=== PATIENT | female | born 1940 | race African-American/Black ===

== ENCOUNTER 2016-02-17 19:54 | Emergency (ER) | payer OTHER, BC ==
[~2016-02-17] VITALS: Ht 149.9 cm; Wt 47.6 kg
--- NOTE | ~2016-02-17 | EKG ---
[address] [address] ELECTROCARDIOGRAM REPORT Name: ALEN MADISON Room #: DEP [facility]#: [id number] Admission: 02/17/16 Attend Phys: Discharge: 02/17/16 Date of : 38 Report #: [id number] THIS REPORT FOR: //name// 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
[~2016-02-17 19:54] MED LIST: ADVAIR HFA 1112 UNIT INH; ASPIR 8181 MG PO; ASPIRIN EC81 M1 PO; COMBIVENT RESPIM4 GM INH; FLONASE 0.05%50 MCG NASAL; LISINOPRIL5 MG PO; LOPRESSOR100 M1 PO; LOPRESSOR50 PO; NEPHROCAPS SOFT1 CAP PO; NEURONTIN 300300 M1 PO; NITROGLYCERIN0.4 MG SUBLING; PAXIL10 MG PO; PEPCID20 MG PO; PREDNISONE 10 M10 MG PO; PROAIR HFA8.5 GM INH; TRIAMCINOLONE A80 G2; [UNRECOGNIZED DRUG - OTHER]
[2016-02-17 20:46] LABS: HEMOGLOBIN 12.1 gm/dL (12.0-15.0); RDW 18.2 % (10.5-14.5)
[2016-02-17 20:47] LABS: HEMATOCRIT 37.3 % (37.0-47.0); MCH 28.6 pg (26.0-34.0); MCHC 32.4 % (28.0-37.0); MCV 88.5 fL (80.0-100.0); PLATELET COUNT 270 thou/uL (150-400); RBC 4.22 mil/uL (4.20-5.00); WBC 5.4 thou/uL (4.0-11.0)
[2016-02-17 20:49] LABS: MANUAL DIFF YES
[2016-02-17 20:53] LABS: ANION GAP 16 mmol/L (7-16); BUN 37 mg/dL (7-18); CALCIUM 6.9 mg/dL (8.5-10.1); CHLORIDE 92 mmol/L (98-107); CO2 30 mmol/L (21-32); CREATININE 6.9 mg/dL (0.6-1.3); GLUCOSE 95 mg/dL (70-99); POTASSIUM 5.4 mmol/L (3.5-5.1); SODIUM 138 mmol/L (136-145)
[2016-02-17 21:02] LABS: ALBUMIN 3.7 g/dL (3.4-5.0); ALKALINE PHOSPHATASE 139 U/L (46-116); SGOT 30 U/L (15-37); SGPT 10 U/L (30-65); TOTAL BILIRUBIN 1.2 mg/dL (<0.1-1.0); TOTAL PROTEIN 7.7 g/dL (6.4-8.2)
[2016-02-17 21:13] LABS: ABSOLUTE NEUTROPHILS 2.9 thou/uL (1.4-8.2); ANISOCYTOSIS 2+; TOTAL CELL COUNT 100
[2016-02-17 21:15] LABS: POIKILOCYTOSIS SLIGHT; POLYCHROMASIA OCCASIONAL; TARGET CELLS OCCASIONAL
[2016-02-17 21:22] LABS: NT-PRO BRAIN NAT PEPTIDE > 35000 pg/mL (<300)
[2016-02-17] MEDS ORDERED: TESSALON PERLE100 MG PO (23:29)
[2016-02-17] MEDS ORDERED: ASA5UEC PO (23:30)
[2016-02-17] MEDS ORDERED: CALCITRIOL0.25 MCG PO (23:30)
[2016-02-17] MEDS ORDERED: ONDANSETRON HCL4 M2 PO (23:31)
[2016-02-17] MEDS ORDERED: ZOFRAN ODT4 MG DISSOLVE (23:32)
[2016-02-17] MEDS ORDERED: NITROSTAT0.4 M1 SL (23:32)
== END 2016-02-17 23:20 | disposition home or self-care (01) ==
LOC: ER 19:54
PROVIDERS: Nurse Practitioner Family
DX: S16.1XXA Strain of muscle, fascia and tendon at neck level, initial encounter (principal); G44.209 Tension-type headache, unspecified, not intractable; J45.909 Unspecified asthma, uncomplicated; I25.2 Old myocardial infarction; N18.6 End stage renal disease; Z99.2 Dependence on renal dialysis; Z88.1 Allergy status to other antibiotic agents; Z88.6 Allergy status to analgesic agent; Z88.0 Allergy status to penicillin; Z88.2 Allergy status to sulfonamides; Z88.8 Allergy status to other drugs, medicaments and biological substances; F17.210 Nicotine dependence, cigarettes, uncomplicated

== ENCOUNTER 2016-02-24 04:54 | Emergency (ER) | payer OTHER, BC ==
[~2016-02-24] VITALS: Ht 149.9 cm; Wt 47.6 kg
--- NOTE | ~2016-02-24 | EKG ---
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 : 1940 Requested By: Milly Beckham Order Number: [id number] MD: Mike Harris Measurements Intervals [place] Rate: 93 P: 51 [place]: 146 QRS: 0 QRSD: 139 T: 116 QT: 419 QTc: 522 Interpretive Statements Sinus rhythm Inferior infarct, old Nonspecific T abnormalities, lateral leads Prolonged QT interval Compared to ECG 02/17/2016 20:25:50 No significant changes found Electronically Signed On 02-24-2016 8:10:06 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
[~2016-02-24 04:54] MED LIST changes: +ASA5UEC PO; +CALCITRIOL0.25 MCG PO; +NITROSTAT0.4 M1 SL; +ONDANSETRON HCL4 M2 PO; +TESSALON PERLE100 MG PO; +ZOFRAN ODT4 MG DISSOLVE
[2016-02-24 06:00] LABS: HEMOGLOBIN 12.6 gm/dL (12.0-15.0); WBC 5.6 thou/uL (4.0-11.0)
[2016-02-24 06:02] LABS: HEMATOCRIT 39.3 % (37.0-47.0); MCH 28.9 pg (26.0-34.0); MCV 90.2 fL (80.0-100.0); PLATELET COUNT 216 thou/uL (150-400); RBC 4.35 mil/uL (4.20-5.00); RDW 19.2 % (10.5-14.5)
[2016-02-24 06:05] LABS: MANUAL DIFF YES
[2016-02-24 06:07] LABS: CREATININE 9.6 mg/dL (0.6-1.3); POTASSIUM 4.9 mmol/L (3.5-5.1)
[2016-02-24 06:08] LABS: CALCIUM 6.5 mg/dL (8.5-10.1)
[2016-02-24 06:22] LABS: ALBUMIN 3.6 g/dL (3.4-5.0); TOTAL BILIRUBIN 0.9 mg/dL (<0.1-1.0); TOTAL PROTEIN 7.5 g/dL (6.4-8.2)
[2016-02-24 06:23] LABS: TROPONIN-I 0.06 ng/mL (<0.04-0.07)
[2016-02-24 07:28] LABS: ABSOLUTE NEUTROPHILS 2.3 thou/uL (1.4-8.2); TOTAL CELL COUNT 100
[2016-02-24 07:29] LABS: ANISOCYTOSIS 1+; OVALOCYTES 1+
== END 2016-02-24 07:41 | disposition home or self-care (01) ==
LOC: ER 04:54
PROVIDERS: Emergency Medicine
DX: L98.9 Disorder of the skin and subcutaneous tissue, unspecified (principal); J45.909 Unspecified asthma, uncomplicated; N18.6 End stage renal disease; F17.210 Nicotine dependence, cigarettes, uncomplicated; I25.2 Old myocardial infarction; Z88.1 Allergy status to other antibiotic agents; Z88.2 Allergy status to sulfonamides; Z88.5 Allergy status to narcotic agent; Z88.0 Allergy status to penicillin